=== PATIENT | female | born 1985 | race African-American/Black ===

== ENCOUNTER 2018-01-21 22:02 | Emergency (ER) | payer MEDICAID ==
[~2018-01-21] VITALS: Ht 170.2 cm; Wt 109.0 kg
[2018-01-22] MEDS ORDERED: SODIUM CHLORIDE 0.9% 1,000 ML IV ONE (03:18)
[2018-01-22] MEDS ORDERED: ACETAMINOPHEN 325MG TABLET PO STA (03:18)
[2018-01-22 04:04] LABS: BASOPHILS % 1.3 % (0.0-2.0); HEMATOCRIT. 34.1 % (36.0-48.0); LYMPHOCYTES % 44.1 % (20.0-50.0); MEAN CORPUSCULAR HEMOGLOBIN 25.3 pg (28.0-32.0); MEAN CORPUSCULAR VOLUME 78.2 fL (81.0-99.0); MEAN PLATELET VOLUME 8.1 fl (7.4-10.4); MONOCYTES % 8.9 % (2.0-8.0); NEUTROPHILS % 42.7 % (40.0-76.0); PLATELET 164 x1000/uL (130-400); RED BLOOD CELL COUNT 4.37 mill/uL (4.2-5.4); RED CELL DISTRIBUTION WIDTH 16.5 % (11.6-14.6)
[2018-01-22 04:11] LABS: PROTHROMBIN TIME 10.7 sec (9.4-11.6)
[2018-01-22 04:15] LABS: CHLORIDE 110 mEq/L (98-107)
[2018-01-22 04:24] LABS: HCG SCREEN NEGATIVE
[2018-01-22 04:46] LABS: CLARITY URINE CLEAR (CLEAR); COLOR URINE YELLOW (YELLOW); KETONES URINE NEGATIVE (NEGATIVE); LEUKOCYTE ESTERASE URINE NEGATIVE (NEGATIVE); NITRITE URINE NEGATIVE (NEGATIVE); OCCULT BLOOD URINE 3+ (NEGATIVE); PH URINE 5.5 (4.5-8.0); PROTEIN URINE 1+ (NEGATIVE); SPECIFIC GRAVITY URINE 1.031 (1.005-1.030)
[2018-01-22 04:50] LABS: ETHANOL BLOOD < 10 mg/dL; TROPONIN I < 0.02 ng/mL (0.00-0.04)
[2018-01-22 05:02] LABS: *AMPHETAMINES SCREEN URINE NEGATIVE (NEGATIVE); *BARBITURATES SCREEN URINE NEGATIVE (NEGATIVE); *BENZODIAZEPINES SCREEN URINE NEGATIVE (NEGATIVE); *COCAINE SCREEN URINE NEGATIVE (NEGATIVE); OPIATES URINE SCREEN NEGATIVE (NEGATIVE)
[2018-01-22 05:04] LABS: METHADONE URINE SCREEN NEGATIVE (NEGATIVE); PHENCYCLIDINE URINE SCREEN NEGATIVE (NEGATIVE)
[2018-01-22 05:11] LABS: CANNABINOID URINE SCREEN PRESUMTIVE POSITIVE (NEGATIVE)
[2018-01-22 05:28] VITALS: BP 128/64
== END 2018-01-22 05:40 | disposition home or self-care (01) ==
LOC: ER 22:02
DX: R51 Headache (principal); R79.1 Abnormal coagulation profile
CPT/HCPCS: 36415; 71045; 80053; 80305; 81003; 83690; 84484; 84703; 85025; 85610; 96360; 99285; G0482; J7030; Z7610